=== PATIENT | female | born 1965 | race Caucasian/White ===

== ENCOUNTER 2018-11-14 10:24 | Emergency (ER) | payer BC ==
[2018-11-14 11:27] VITALS: BP 145/67
--- NOTE | 2018-11-14 11:43 | UC ---
Upper Extremity HPI - HPI Summary HPI Summary: R shoulder pain after fall on stairs yesterday. She states she has trouble raising her R arm but able to move it otherwise. Denies numbness, tingling, change in color of arm. - History of Current Complaint Chief Complaint: UCUpperExtremity Stated Complaint: SP FALL-RT SHOULDER INJURY Time Seen by Provider: 11/14/18 11:22 Hx Obtained From: Patient Hx Last Menstrual Period: IUD Pain Intensity: 6 Pain Scale Used: 0-10 Numeric Aggravating Factor(s): Lifting Alleviating Factor(s): Nothing - Allergies/Home Medications Allergies/Adverse Reactions: Allergies Allergy/AdvReac Type Severity Reaction Status Date / Time Opioids - Morphine Analogues Allergy Vomiting Verified 11/14/18 11:28 Home Medications: Home Medications Ibuprofen 800 mg PO ONCE PRN 11/14/18 [History Confirmed 11/14/18] PMH/Surg Hx/FS Hx/Imm Hx - Additional Past Medical History Additional PMH: RA Previously Healthy: Yes Endocrine History: Hypothyroidism Other History Of: Negative For: HIV - Surgical History Surgical History: Yes Surgery Procedure, Year, and Place: (2) 2001 & 2003 C SECTION. SEP 2011 - THYROIDECTOMY - Social History Alcohol Use: Weekly Substance Use Type: None Smoking Status (MU): Never Smoked Tobacco Have You Smoked in the Last Year: No - Immunization History Most Recent Influenza Vaccination: Fall 2014 Review of Systems All Other Systems Reviewed And Are Negative: Yes Constitutional: Positive: Negative Skin: Positive: Negative Respiratory: Positive: Negative Cardiovascular: Positive: Negative Motor: Positive: Decreased ROM - r shoulder, Weakness - r shoulder Musculoskeletal: Positive: Arthralgia - r shoulder Neurological: Positive: Weakness - r shoulder. Negative: Paresthesia, Numbness Physical Exam Triage Information Reviewed: Yes Appearance: Well-Appearing Vital Signs: Initial Vital Signs Temp 98.3 F 11/14/18 11:23 Pulse 80 11/14/18 11:23 Resp 14 11/14/18 11:23 BP 145/67 11/14/18 11:23 Pulse Ox 100 11/14/18 11:23 Vital Signs Reviewed: Yes Musculoskeletal: Positive: Strength Intact - r shoulder., No Edema, ROM Limited @ - R shoulder, unable to raise arm above her head., Other: - R scapula nontender. Skin: Positive: Other - no bruising or raised areas on R UE. Upper Extremity Course/Dx - Course Course Of Treatment: Fall onto R shoulder yesterday on stairs and woke up today w/ severe pain and unable to lift R arm. Neg. lift off test. XRAY did not show fx but there is some chronic inflammation, ? adhesive capsulitis of some sort. Will tx pain and advised to follow up with pcp to get re-evaluated and consider repeat imaging. neurovascularly intact. vitals good. - Differential Dx/Diagnosis Differential Diagnosis/HQI/PQRI: Bursitis, Contusion, Fracture (Closed) Provider Diagnosis: Right shoulder pain Discharge - Sign-Out/Discharge Documenting (check all that apply): Patient Departure All imaging exams completed and their final reports reviewed: Yes - Discharge Plan Condition: Good Disposition: HOME Patient Education Materials: Shoulder Pain (ED) Referrals: Jeff Finnegan MD [Primary Care Provider] - Additional Instructions: If pain persists after approx. a week follow up with PCP for possible repeat imaging. today there were no obvious fractures. please picking supervisor your celebrex for pain. - Billing Disposition and Condition Condition: GOOD Disposition: Home
== END 2018-11-14 12:36 | disposition home or self-care (01) ==
LOC: UCCORT 10:24
DX: M25.511 Pain in right shoulder (principal); W10.9XXA Fall (on) (from) unspecified stairs and steps, initial encounter; Y92.9 Unspecified place or not applicable; Z88.5 Allergy status to narcotic agent
CPT/HCPCS: 99211; G0463